=== PATIENT | male | born 1970 | race Hispanic/Latino ===

== ENCOUNTER 2021-02-24 17:03 | Outpatient (CLI) | payer BC | END 2021-02-24 17:04 | disposition home or self-care (01) | LOC: SCSRAD 17:03 | PROVIDERS: ATTEND Family Medicine | DX: M25.531 Pain in right wrist (principal); M25.532 Pain in left wrist ==

== ENCOUNTER 2023-02-23 06:50 | Day surgery (SDC) | payer BC ==
[2023-02-19 11:19] VITALS: BMI 26.5
[2023-02-23] MEDS ORDERED: Midazolam HCl 2 mg/2 ml Vial ONE (08:41)
[2023-02-23] MEDS ORDERED: Sodium Chloride 0.9% 100 ML ONE (09:09)
[2023-02-23] MEDS ORDERED: cefTRIAXone (ROCEPHIN) 2 GM VIAL ONE (09:09)
[2023-02-23] MEDS ORDERED: Lidocaine 1% PF 5 ML VIAL ONE (09:18)
[2023-02-23] MEDS ORDERED: PHENYLEPHRINE-NS 100 MCG/ML 10 ML SYRINGE ONE (09:18)
[2023-02-23] MEDS ORDERED: ePHEDrine Sulfate 50 MG/10 ML VIAL ONE (09:18)
[2023-02-23] MEDS ORDERED: fentaNYL PF 100 MCG/2 ML SYRINGE ONE (09:46)
== END 2023-02-23 11:02 | disposition home or self-care (01) ==
LOC: SDC 06:50
PROVIDERS: ATTEND Urology
PROC: 0V903ZX Drainage of Prostate, Percutaneous Approach, Diagnostic (ICD-10-PCS; principal; 2023-02-23)
DX: C61 Malignant neoplasm of prostate (principal); N40.1 Benign prostatic hyperplasia with lower urinary tract symptoms; R39.12 Poor urinary stream; E11.9 Type 2 diabetes mellitus without complications; I10 Essential (primary) hypertension; R97.20 Elevated prostate specific antigen [PSA]; Z79.84 Long term (current) use of oral hypoglycemic drugs; Z79.899 Other long term (current) drug therapy; Z87.891 Personal history of nicotine dependence
CPT/HCPCS: 88305; J0696; J2250; J3490